=== PATIENT | male | born 1955 | race Caucasian/White ===

== ENCOUNTER → 2016-09-03 | Outpatient (CLI) | payer MEDICARE ==
[~2016-09-03] MED LIST: ALDACTONE25 MG PO; ASPIRIN325 MG PO; BRILINTA90 MG PO; FISH OIL1000 MG PO; FLONASE 50 MCG/16 GM NOSE; HYDRODIURIL25 MG PO; LEVOTHROID (S200 MCG PO; LIPITOR80 MG PO; LOPRESSOR100 MG PO; MIRAPEX0.125 MG PO; MULTI VITAMIN1 EACH PO; NEURONTIN400 MG PO; NORVASC10 MG PO; OXYGEN M-15 INH; PAMELOR25 MG PO; PLAVIX75 MG PO; PRINIVIL (ZESTR20 MG PO; PROTONIX40 MG PO; SINEMET CR 25-1 EACH PO; TYLENOL EXTRA500 MG PO; ULTRAM50 MG PO; ZOCOR20 MG PO; ZYRTEC10 MG PO
== END ==
LOC: LGSMG 15:10
DX: R07.89 Other chest pain (principal); E03.9 Hypothyroidism, unspecified

== ENCOUNTER → 2016-09-08 | Outpatient (CLI) | payer MEDICARE ==
--- NOTE | ~2016-09-08 | ESTC ---
Cardiac Perfusion Imaging Demographics Patient Name DEANGELO Duque Gender Male Patient Number [id number] Race Visit Number [id number] [place] [id number] Room Number Accession Number [id number] Height 71 inches Date of 1955 Weight 240 pounds Interpreting Annelise Guzman MD Date of study 09/08/2016 Physician Supervising /SANKET POWERS Technologist Emily Pink Ordering Physician Stress [place] tool technician Oscar Stress ECG Reading Bill San Physician AJIT The procedure was explained in detail to the patient. Risks, complications and alternative treatments were reviewed. Written consent was obtained. Medications Reviewed with Patient prior to Procedure. Procedure Procedure Type: Nuclear Stress Test:Cardiolite Stress Test Procedure Start time: 09/08/2016 09:15 Indications: Exertional Chest Pain. Risk Factors The patient risk factors include:prior PCI on 05/04/2015;prior CABG on 05/04/2000;former tobacco use, treated hypercholesterolemia, treated and controlled hypertension for 10 years, family history of premature CAD, dyslipidemia, prior heart failure , prior [place] and ( years not smokin). Conclusions Summary Cardiolite SPECT images demonstrate homogenous uptake of radioactive tracer. No evidence of inducible reversible defect and no evidence of underlying fixed defect. TID is mildly increased at 1.16 Gated images demonstrate normal left ventricular systolic function without inducible wall motion abnormalities. LVEF is 65% Stress Protocols Resting ECG RSR with T wave inverstion AVL V2, V3 Resting HR:60 bpm Resting BP:128/74 mmHg Pre-stress physical exam: Patient assessed by Becca Khan APRN prior to testing. Stress Protocol:Pharmacologic Peak HR:68 bpm HR response: Appropriate Predicted HR: 158 bpm BP response: Appropriate % of predicted HR: 43 Reason for termination:Infusion complete ECG Findings No ECG changes suggestive of ischemia. Arrhythmias No rhythm abnormality. Symptoms Complained of shortness of breath with Lexiscan Stress Interpretation Appropriate hemodynamic response to Lexiscan. No significant ST-T wave changes with Lexiscan. ECG portion is negative for ischemia by diagnostic criteria. Unchanged EKG baseline. Stress supervision and interpretation provided by Priscilla Khan APRN . Imaging Results Summed scores - Summed stress score: 0 - Summed rest score: 0 - Summed difference score: 0 Stress ejection Ejection fraction:65 % EDV :149 ml ESV :52 ml Stroke volume :97 ml LV mass :158 gr Imaging Protocols Rest Stress Isotope:Tc99m Sestamibi IV Isotope: Tc99m Sestamibi IV Isotope dose:14.6 mCi Isotope dose:42.7 mCi Date:09/08/2016 07:24 Date:09/08/2016 10:07 Technique: SPECT Technique: Gated Supine SPECT Supine Scan Time:45-60 minutes post Scan Time:45-60 minutes post injection injection Procedure Medications - Regadenoson (Lexiscan) 0.4 mg IV over 10-15 sec. I.V. . Medical History Admission Data Admission date: 09/08/2016 Admission Time: 06:48 Hospital Status: Outpatient. Signatures dtt: Thomas Castelan (cardio) dtd: 09/08/16 0915 Physician Self Edit
== END | disposition disaster alternative care site (69) ==
LOC: GRAD 06:48
DX: R07.89 Other chest pain (principal)
CPT/HCPCS: A9500; J2785

== ENCOUNTER 2016-09-13 20:26 | Inpatient (IN) | payer MEDICARE ==
[~2016-09-13] VITALS: Ht 180.3 cm; Wt 101.2 kg
--- NOTE | ~2016-09-13 | CATH ---
Cardiac Diagnostic Report Demographics Patient Name DEANGELO Duque Gender Male Date of 1955 Age 60 year(s) Patient Number [id number] Date of Study 09/14/2016 Visit Number [id number] Room Number G[address] [place] [id number] Ht 170.18 cm Wt 126.55 kg Referring Efstratiou Primary Physician Physician Wayne Pena MD Performing Efstratiou Secondary Physician Physician Wayne Pena MD Diagnostic Efstratiou Assisting Physician Physician Wayne Pena MD Interventional Physician Valve Setter Physician Findings and Conclusions Diagnostic Findings and Conclusion EF 65% No major stenosis seen Patent proximal LAD stent and MORRIS to distal LAD Diagnostic Recommendations Medical treatment Procedure Description The patient was brought to the diagnostic cardiac catheterization-EP laboratory in the fasting, non-sedated state. Informed consent was obtained in the written and verbal form after the risks and benefits were explained. The patient had no further questions and agreed to proceed. The planned puncture-incision site(s) were shaved and prepped with ChloraPrep and draped in the usual sterile manner. Conscious sedation, supplemental oxygen, and pain control medications were delivered by a registered nurse under physician guidance. Surface ECG rhythm, blood pressure measurement, and pulse oximetry were monitored throughout the procedure. Arterial access. The access site was infiltrated with lidocaine. The vessel was entered with the Seldinger technique. A sheath was advanced into the vessel and used for catheter placement. Selective left coronary angiography. A catheter was advanced into the left coronary vessel ostium under Fluoroscopic guidance. Contrast was injected by hand. Images were obtained in multiple projections. Selective right coronary angiography. A catheter was advanced into the right coronary vessel ostium under fluoroscopic guidance. Contrast was injected by hand. Images were obtained in multiple projections. Selective MORRIS graft angiography. A catheter was advanced into the left internal mammary graft ostium under fluoroscopic guidance. Contrast was injected by hand. Images were obtained in multiple projections. Left heart catheterization with ventriculography. A catheter was advanced across the aortic valve to the left ventricle under fluoroscopic guidance. Resting hemodynamics were obtained. With the catheter at the left ventricular apex, contrast was injected. Images were obtained in ALEX projections. Post-ventriculography LV pressure was obtained. The catheter was gradually withdrawn into the aorta with continuous pressure recording. Arterial artery hemostasis. Hemostasis was achieved. The patient was transferred to a regular nursing floor via cart accompanied by a nurse. The patient left the laboratory in stable condition. Diagnostic Cath Status: Urgent Procedure Procedure Type Diagnostic procedure:Ventriculogram:, Left, Angiography:, Coronary Angios Indications: Chest pain and Ventricular Tachycardia. The procedure was explained in detail to the patient. Risks, complications and alternative treatments were reviewed. Written consent was obtained. Medications Reviewed with Patient prior to Procedure. Angiographic Findings Dominance: Right Cardiac Arteries and Lesion Findings LMCA: Lesion on LMCA: Distal subsection.20% stenosis . LAD: Proximal LAD stent patent.There is a previous stent on Mid LAD. Lesion on Dist LAD: 100% stenosis . Lesion on 1st Diag: Ostial.30% stenosis . LCx: There is a previous stent on Prox CX Ostial. Lesion on Prox CX: Ostial.25% stenosis . RCA: PL- a small terminal branch is occluded and fills late. Lesion on Mid RCA: 20% stenosis . Cardiac Grafts - There is a graft that originates at the MORRIS and attaches to the Mid LAD (Patent). - (occluded). Coronary Tree Procedure Data Procedure Date Date: 09/14/2016Start: 01:37 PMEnd: 02:12 PM Entry Locations - Retrograde Percutaneous access was performed through the Right Femoral artery (Primary location). A 6 Fr sheath was inserted. Hemostasis was successfully obtained using Angio-Seal STS PLUS ([facility]). Closure Comments: Deployed by Dr. Peterson. Procedure Medications Order and Administration + + + + + !Time !Medication !Dosage !Route ! + + + + + !09/14/2016 02:02 PM !Nitroglycerin !10 mcg/min !I.V. drip ! + + + + + Devices Used - A6 Fr. BS JL 4 Diag. Catheterwas used for:Left coronary angiography. - A6 Fr. BS JR 4 Diag. Catheterwas used for:Right coronary angiography. - A6 Fr. BS JR 4 Diag. Catheterwas used for:MORRIS. - A6 Fr. BS Angled Pigtail Diag. Catheterwas used for:Left ventriculography. Contrast Material - Isovue 223944 ml Fluoroscopy Time: Diagnostic: 4:12 minutes. Total: 4:12 minutes. Fluoroscopy Dose: Diagnostic: 966 mGy. Total: 966 mGy. Estimated Blood Loss: 15 ml. Medical History Allergies - No known allergies. Risk Factors The patient risk factors include:prior PCI on 11/13/2015; prior CABG on 05/03/1996;peripheral arterial disease, treated hypercholesterolemia, treated hypertension, family history of premature CAD, last creatinine: 1.3 mg/dl, creatinine clearance: 105.46 ml/min, dyslipidemia and former tobacco use. Admission Data Admission Date: 09/14/2016 Admission Time: 12:23 AM Admit Source: Emergency department Insurance Payors: Medicare. Admission Medications + +------+------+ + + + + !Medication !Dosage!Times !Last !Last !Administered !Comments ! ! ! !Per !Delivery !Delivery ! ! ! ! ! !Day !Date !Time ! ! ! + +------+------+ + + + + !Aspirin ! ! ! ! !Yes ! ! !(any) ! ! ! ! ! ! ! + +------+------+ + + + + !Statin (any)! ! ! ! !Yes ! ! + +------+------+ + + + + ![place] ! ! ! ! !Yes ! ! !Inhibitor ! ! ! ! ! ! ! !(any) ! ! ! ! ! ! ! + +------+------+ + + + + !Beta Dmitri! ! ! ! !Yes ! ! !(any) ! ! ! ! ! ! ! + +------+------+ + + + + Clinical Evaluation Leading to Procedure - The patient's CAD presentation was assessed as: Unstable angina. - The patient's anginal syndrome during the past two weeks was assessed as: Class IV according to the [place] Cardiovascular Society Classification System (CCS). Anti-anginal medications were prescribed during the past two weeks. The medication is: Beta Blockers. VA LV function assessed as:Normal. Ejection Fraction - Method: LV gram. EF%: 65. Snapshots Hemodynamics Condition: Rest O2 Consumption: Estimated: 265.38Heart Rate: 61 bpm Pressures (mmHg) +-----+ + !Site !Pressure ! +-----+ + !AO !119/64 (86) ! +-----+ + !AO !122/74 (90) ! +-----+ + !LV !124/-18 ! +-----+ + !LV !125/- ,17 ! +-----+ + !LV !118/1 ,18 ! +-----+ + !LV !119/1 ,20 ! +-----+ + !AO !119/57 (82) ! +-----+ + !LV !118/0 ,18 ! +-----+ + Valve Gradients and Areas + +---------+---------+---------+ +---------+ + !Valve !Peak !Mean !Area !Index !Flow !Source ! + +---------+---------+---------+ +---------+ + !Aortic !0 !0 ! ! ! ! ! + +---------+---------+---------+ +---------+ + !Aortic !0 !0 ! ! ! ! ! + +---------+---------+---------+ +---------+ + Shunts Oxygen Values O2 Capacity 157.76 O2 Consumption 265.38 Signatures dtt: Armaan Peterson dtd: 09/14/16 1337 Physician Self Edit
--- NOTE | ~2016-09-13 | ENPV ---
Carotid Duplex Study Demographics Patient Name CLINT BRIGHT Date of Study 09/15/2016 Patient Number [id number] Gender Male Date of 1955 Age 60 Visit Number [id number] Height 67 Accession Number [id number] Weight 279 Referring Cachorro Helm Interpreting Berenice Martinez MD Physician Physician Physician Ordering Cachorro Helm Assistant Store Manager Trainee Physician Inspecting Supervisor Suad Rubio Conclusions Summary The right internal carotid artery has mild, 1-39%, plaque and stenosis. The left internal carotid artery has mild, 1-39%, plaque and stenosis. The right vertebral artery is present with antegrade flow. The left vertebral artery is present with antegrade flow. Calcific plaque at the bulb and internal carotid artery on the right. Calcific plaque at the bulb on the left. Procedure Type of Study: Cerebral:Carotid, Carotid Doppler Bilateral. Indications for Study:Carotid Bruit. Allergies - No known allergies. Patient Status:Routine. Study Location:Inpatient Portable. Technical Quality:Adequate visualization. Risk Factors - The patient's risk factor(s) include: dyslipidemia, treated arterial hypertension and prior CABG. - The patient has a former tobacco history. - The patient's last creatinine was 1.3 mg/dl. Velocities are measured in cm/s ; Diameters are measured in cm Carotid Right Measurements Carotid Left Measurements + +--------+--------+ + + + +--------+ --------+ + + !Location !PSV !EDV !Angle !%Stenosis ! !Location !PSV ! EDV !Angle !%Stenosis ! + +--------+--------+ + + + +--------+ --------+ + + !Prox CCA !110 !24 !60 ! ! !Prox CCA !134 ! 36 !60 ! ! + +--------+--------+ + + + +--------+ --------+ + + !Dist CCA !96 !24 !60 ! ! !Dist CCA !107 ! 29 !60 ! ! + +--------+--------+ + + + +--------+ --------+ + + !Prox ICA !83 !35 !60 ! ! !Prox ICA !107 ! 31 !60 ! ! + +--------+--------+ + + + +--------+ --------+ + + !Dist ICA !87 !30 !40 ! ! !Dist ICA !97 ! 26 !60 ! ! + +--------+--------+ + + + +--------+ --------+ + + !Prox ECA !143 ! !60 ! ! !Prox ECA !166 ! !60 ! ! + +--------+--------+ + + + +--------+ --------+ + + !Vertebral !42 ! !60 ! ! !Vertebral !57 ! !60 ! ! + +--------+--------+ + + + +--------+ --------+ + + !Subclavian !126 ! !60 ! ! !Subclavian !166 ! !60 ! ! + +--------+--------+ + + + +--------+ --------+ + + - There is antegrade vertebral flow noted on the right side. - There is antegrade verte bral flow noted on the left side. - Add'l Measurements:ICAPSV/CCAPSV 0.79.ICAEDV/CCAEDV 1.42. - Add'l Measurements:ICAPS V/CCAPSV 0.8.ICAEDV/CCAEDV 0.85. Signature dtt: Brandyn Ng dtd: 09/15/16 0813 Physician Self Edit
--- NOTE | ~2016-09-13 | DS ---
PATIENT'S NAME: CLINT BRIGHT [facility] AGE: 60 Y [address] ROOM: [facility] [place], [place] [address] LOCATION: GPCU ADMIT DATE: 09/14/2016 Discharge Summary DISCHARGE DATE: 09/15/2016 FAMILY PHYSICIAN: Alicja Ivory MD ATTENDING PHYSICIAN: Robert Hughes FINAL DIAGNOSES: 1. Chest pain. 2. Arrhythmia. 3. Known coronary disease. 4. Acute kidney injury. 5. Essential hypertension. 6. Carotid bruit with a pending Doppler. 7. Hypothyroidism. HISTORY OF PRESENT ILLNESS: For details of admission, please see the history and physical dictated by Dr. Hughes. In short, the patient was admitted to the hospital with chest pain and en route it was felt by the paramedics that he had had ventricular tachycardia. LABORATORY DATA: On admit, sodium 140, at discharge 145; potassium on admission 3.9 and 3.6 on discharge; BUN on admission was 27, discharge 16; and creatinine on admission was 1.3, discharge 1.8. Liver enzymes were normal. Magnesium was 2.3. Cholesterol 138, triglycerides 221, and HDL 35. Cardiac enzymes, 4 sets, were all negative. Hemoglobin A1c was 6. TSH was 2.47. On admission, white blood cell count 11.3, hemoglobin 11.6, hematocrit 34.2, platelet count 255, these all remained stable during the hospital stay. Urinalysis did not show any evidence of infection or protein spillage. A CT scan of the head done in the ER on admission did not show any acute changes. A CT scan without contrast to rule out a dissection, there was no evidence of aneurysm or dissection; had a 5-cm renal cyst; and punctate nonobstructing stones in the upper pole of the left kidney. CARDIOVASCULAR DATA: Echocardiogram done showed that his EF was 50% to 55%, he had non-concentric left ventricular hypertrophy, left ventricle was mildly dilated, he had mildly reduced right ventricular function, and he did have normal relaxation. HOSPITAL COURSE: The patient was admitted after presenting to the emergency room via squad with chest pain, with a concern that he had had ventricular tachycardia en route. The patient is normally seen by Dr. Thomas Castelan for cardiology purposes. Dr. Peterson was national coverage specialist and did see him. Cardiology consult was obtained. Cardiac enzymes were obtained, all of which returned negative. A CT scan was done to rule out an aortic dissection. The patient was continued on his home medications. His pain did come under better PATIENT'S NAME: CLINT BRIGHT [facility] AGE: 60 Y [address] ROOM: [address] [place], [place] [address] LOCATION: GPCU ADMIT DATE: 09/14/2016 Discharge Summary DISCHARGE DATE: 09/15/2016 FAMILY PHYSICIAN: Alicja Ivory MD ATTENDING PHYSICIAN: Robert Hughes. There was concern about a new carotid bruit, so a carotid Doppler was obtained which is pending at this time. He also did complain of pain which was thought to be secondary to nitroglycerin. He was given pain medications. He was able to have the nitroglycerin weaned off. A heart catheterization was performed, which did not show any acute lesions, please see the cath note dictated by Dr. Peterson. The patient did have elevated creatinine on admission and this was monitored and it did trend downward and it was made sure that it was okay prior to proceeding with a heart catheterization. The patient was started on amiodarone 400 mg twice a day. He was seen on the by Dr. Castelan, his normal net washer. The strips were reviewed and it was felt that indeed it was not ventricular tachycardia. The amiodarone was stopped, the patient was resumed on his beta jerome, and it was felt that he was stable for discharge. I did discuss this with Dr. Castelan. The decision was made that the patient was stable for discharge with close followup with Dr. Castelan the next day in the clinic, and I did also clarify his driving status. Dr. Castelan felt that he could drive. DISCHARGE INSTRUCTIONS: Follow a cardiac diet. Dr. Castelan tomorrow as already scheduled. See Dr. Ivory in 10-14 days. MEDICATIONS: 1. Zyrtec 10 mg daily. 2. Neurontin 800 mg 3 times daily. 3. Metoprolol 100 mg twice daily. 4. Aspirin 325 mg daily. 5. Lisinopril 20 mg twice daily. 6. Levothyroxine 200 mcg daily. 7. Tramadol 100 mg 3 times daily. 8. Lipitor 80 mg at bedtime. 9. Mirapex 0.125 mg every other night at bedtime. 10. Carbidopa CR 25-100 one tablet at bedtime. 11. Multivitamin daily. 12. Badger-3 fatty acids 1000 mg twice daily. 13. Spironolactone 25 mg daily. 14. O2 at 2 L per nasal cannula at night. 15. Plavix 75 mg daily. 16. Flonase spray 1 spray per nostril each day. 17. Acetaminophen 1000 mg p.o. 3 times daily. The patient was told that he could drive and he is to follow up with Dr. Castelan. CLAUDIA KEN MD PATIENT'S NAME: CLINT BRIGHT [facility] AGE: 60 Y [address] ROOM: [place] [address] LOCATION[facility] ADMIT DATE: 09/14/2016 Discharge Summary DISCHARGE DATE: 09/15/2016 FAMILY PHYSICIAN: Alicja Ivory MD ATTENDING PHYSICIAN: Robert Hughes/carol /[id number] CC: MD Alicja Watters MD d: 09/16/161905 t: 09/19/161920, DISCHARGE SUMMARY
--- NOTE | ~2016-09-13 | ECHO ---
Transthoracic Echocardiography Report (TTE) Demographics Patient Name CLINT BRIGHT Date of Study 09/14/2016 Patient Number [id number] Visit Number [id number] Date of 1955 Room Number G6331 Gender Male Number Age 60 year(s) Referring [facility] Box Stacker Yas Mojica [facility], Physician RVT Ellen Gustafson MD Physician Interpreting Kristen Black Fireboat Operator Physician A Supervising Ordering MD/MLP Physician Nurse Stress Diabetic Educator Conclusions Summary The estimated left ventricular ejection fraction is 50-55%. Mild concentric left ventricular hypertrophy. The left ventricle is mildly dilated . Diastolic assessment reveals normal relaxation. Mildly reduced right ventricular function. The left atrium is moderately dilated. Procedure Type of Study TTE procedure:2D Echocardiogram. Procedure Date Date: 09/14/2016 Start: 09:59 AM Study Location: [employer] Technical Quality: Fair Indications:Chest pain. Appropriate Use Criteria: 9 Patient Status: Routine Rhythm: Within normal limits HR: 61 bpm BP: 116/55 mmHg Allergies - No known allergies. M-Mode/2D Measurements LV Diastolic Dimension: 1.14 cm LV Systolic Dimension: 2.45 cm LV Septum Diastolic: 5.15 cm LV Septum Systolic: 4.11 cm LV PW Diastolic: 1.58 cm AO Root Dimension: 2.7 cm Cardiac Output: 5.66 l/min AV Cusp Separation: 2.4 cm RV Diastolic Dimension: 1.23 cm LA volume: 89 ml IVC Inspiration: 1.27 cm LVOT: 2.5 cm RV Base: 3.72 cm LVOT VTI: 18.9 cm RV Mid: 2.64 cm LV Stroke volume: 92.73 ml TAPSE: 1.27 cm TDI-S': 8 cm/s Doppler Measurements AV Peak Velocity: 1.55 m/s MV Peak E-Wave: 0.9 m/s AV Peak Gradient: 9.61 mmHg MV Peak A-Wave: 0.72 m/s AV Mean Gradient: 4 mmHg MV E/A Ratio: 1.25 LVOT Peak Velocity: 0.83 m/s MV P1/2t: 95 msec TR Gradient:25.2 mmHg PV Peak Velocity: 1.03 m/s Estimated RAP:3 mmHg PV Peak Gradient: 4.24 mmHg Estimated RVSP: 28 mmHg Estimated PASP: 28.2 mmHg E' Septal Velocity: 0.1 m/s A' Septal Velocity: 0.12 m/s E' Lateral Velocity: 0.13 m/s A' Lateral Velocity: 0.12 m/s Findings Left Ventricle The estimated left ventricular ejection fraction is 50-55%. Mild concentric left ventricular hypertrophy. The left ventricle is mildly dilated . Diastolic assessment reveals normal relaxation. Right Ventricle Mildly reduced right ventricular function. Device lead noted in the right ventricle. Left Atrium The left atrium is moderately dilated. Right Atrium Normal right atrial size. Mitral Valve Trivial mitral regurgitation by color Doppler. Aortic Valve The aortic valve is mildly sclerotic. Tricuspid Valve Mild tricuspid regurgitation by color Doppler. Pulmonic Valve Normal pulmonic valve structure and function. Pericardial Effusion No evidence of pericardial effusion. Miscellaneous Visualized portions of the aortic root and ascending aorta appear normal in size. Pleural Effusion No evidence of pleural effusion. Signature dtt: Armaan Peterson dtd: 09/14/16 0959 Physician Self Edit
--- NOTE | ~2016-09-13 | CON ---
PATIENT'S NAME: CLINT BRIGHT [facility] AGE: 60 Y [address] ROOM: [address] [address] LOCATION: GPCU ADMIT DATE: 09/14/2016 Consultation DISCHARGE DATE: FAMILY PHYSICIAN: GARETH LOW MD ATTENDING PHYSICIAN: ROLANDO BAEZ DATE OF CONSULTATION: 09/14/2016 REFERRING PHYSICIAN: Armaan Peterson MD REASON FOR CARDIOLOGY CONSULT: Chest pain and nonsustained ventricular tachycardia. HISTORY OF PRESENT ILLNESS: This is a 60-year-old male who is familiar to [facility]. He is currently in the process of transferring cardiology provider to Dr. Thomas Castelan. He previously underwent a stress test on September 08, 2016, with Dr. Castelan which showed no evidence of inducible reversible deficit and no evidence of underlying fixed deficit ischemia. The patient presents to [facility] Emergency Department by ambulance after developing chest pain that he described as familiar to his previous chest pain prior to stenting. He described the pain as left-sided and intense pressure. He tried ambulating to his car to come for evaluation, but did have to stop and lie on the ground due to feelings of lightheadedness and continued increasing amounts of chest pain. While in the ambulance on transfer to [facility], he did have nonsustained ventricular tachycardia which converted back to sinus rhythm without medications. At the time of this consult, the patient is resting comfortably in his bed and does continue to have minor complaints of chest pain. PAST MEDICAL HISTORY: 1. Coronary artery disease with a history of coronary artery stenting. Most recent coronary stent placed to his LAD in November 2015. 2. Hypertension. 3. Hyperlipidemia. 4. Obstructive sleep apnea. 5. Sick sinus syndrome, with a pacemaker implantation. 6. Hypothyroidism. 7. Peripheral neuropathy. FAMILY HISTORY: There is a positive cardiac history with his father expiring due to a myocardial infarction in his 60s. His mother also has a positive cardiac history with having a myocardial infarction in her 60s. He has a brother with a history of coronary artery bypass grafting after an PR and a sister who due to chronic kidney disease and was on dialysis. PATIENT'S NAME: CLINT BRIGHT [facility] AGE: 60 Y [address] ROOM: [address] [address] LOCATION: GPCU ADMIT DATE: 09/14/2016 Consultation DISCHARGE DATE: FAMILY PHYSICIAN: GARETH LOW MD ATTENDING PHYSICIAN: ROLANDO BAEZ PAST SURGICAL HISTORY: 1. Coronary artery bypass grafting in 1995, coronary artery stenting. 2. Permanent pacemaker. 3. Low back surgeries. 4. Appendectomy. 5. Tonsillectomy. SOCIAL HISTORY: The patient is a former cigarette smoker. He smoked 2 packs per day for a total of 40 years. He quit smoking in 2008. He denies alcohol or illicit drug use. CURRENT MEDICATIONS: 1. Amiodarone IV per protocol. 2. Heparin IV per ACS protocol. 3. Sodium bicarbonate IV. 4. Aspirin 81 mg p.o. daily. 5. Claritin 10 mg p.o. daily. 6. Levothyroxine 200 mcg p.o. daily. 7. Lipitor 80 mg p.o. daily in the evening. 8. Lopressor 25 mg p.o. twice daily. 9. Mirapex 0.125 mg p.o. daily in the evening. 10. Mucomyst 1200 mg p.o. twice daily. 11. Neurontin 800 mg p.o. 3 times daily. 12. Sinemet 25/100 mg one tablet p.o. daily in the evening. MEDICATION ALLERGIES: No known medication allergies. REVIEW OF SYSTEMS: Pertinent positive review of systems listed in the HPI. All other review of systems evaluated and negative. PHYSICAL EXAMINATION: VITAL SIGNS: Temperature 97.7, pulse 60, respirations 16, blood pressure 115/57, and O2 saturation 93% on room air. The patient weighs 101.6 kg. SKIN: [place], warm, and dry. EYES: Sclerae clear. No xanthelasma. ENT: Oral mucosa is pink and moist. NECK: No jugular venous distention or carotid bruits. CHEST: Respirations are even and unlabored. LUNGS: Clear to auscultation. HEART: Regular rate and rhythm. Normal S1 and S2. No murmurs, rubs, or gallops. PATIENT'S NAME: CLINT BRIGHT [facility] AGE: 60 Y [address] ROOM: [address] [place] [id number] LOCATION: GPCU ADMIT DATE: 09/14/2016 Consultation DISCHARGE DATE: FAMILY PHYSICIAN: GARETH LOW MD ATTENDING PHYSICIAN: ROLANDO BAEZ ABDOMEN: Soft and nontender. MUSCULOSKELETAL: Gait is normal. EXTREMITIES: Peripheral pulses palpable. No clubbing, cyanosis, or edema. PSYCHIATRIC: Alert and oriented. Mood and affect are appropriate. IMPRESSION AND PLAN: Per Dr. Peterson. 1. Unstable angina. 2. Nonsustained ventricular tachycardia. With his history of coronary artery bypass grafting as well as coronary stenting as well as risk factors including smoking, history of peripheral arterial disease, and diabetes mellitus, his symptoms are rather concerning for possible coronary occlusion. We will plan to take him to the catheterization suite for selective coronary angiography and possible percutaneous intervention. We will continue to monitor, evaluate, and treat as appropriate. Thank you for this consult. Thank you for allowing [facility] to interact in the care of this patient. PATTI MIDDLETON APRN FOR [facility] S[facility] CAMPUSTorsten-MD BARNETT/modl /[id number] d: 09/14/16 1655 t: 09/17/16 1011, CONSULTATION REPORT
--- NOTE | ~2016-09-13 | HP ---
PATIENT'S NAME: CLINT BRIGHT [facility] AGE: 60 Y [address] ROOM: [address] [place], [place] [address] LOCATION: GPCU ADMIT DATE: 09/14/2016 History & Physical DISCHARGE DATE: FAMILY PHYSICIAN: GARETH LOW MD ATTENDING PHYSICIAN: ROLANDO BAEZ DATE OF SERVICE: CHIEF COMPLAINT: Chest pain and presyncope. HISTORY OF PRESENT ILLNESS: This is a 60-year-old male, who says that around 6 p.m. yesterday, he was playing dice with friends and the family members, and all of a sudden, he felt this chest pain in the left side of the chest, intensity 10/10, and it felt like somebody was sitting on his chest with radiation to the left shoulder and then to the upper back. The pain was 10/10 of intensity, and the patient was also diaphoretic and pale with nausea, and vomited twice of nonbloody content and associated with lightheadedness and presyncope, and some blurry vision and palpitation, but the patient denies ever passing out. There was no syncope. Because of this, the patient's nephew tried to take him home. He was walking towards the car. The patient's chest pain got worse, and the patient had to lie on the ground to rest. That is when the family member, the nephew and the called 911, and the patient was brought here for evaluation. The patient states that this kind of chest pain is actually the same as the last time he had chest pain when he required a cardiac catheterization back in November of 2015. At that time, the patient had PCI to LAD. Upon further questioning, this kind of chest pain he has been having in the last three to four weeks on and off, and the patient recently had a stress test performed on September 08, 2016. It was negative for ischemia. EF at that time was 65%. During the ambulance ride over here, the patient developed a sustained ventricular tachycardia with heart rate between 120 to 130, and blood pressure was hemodynamically stable according to the ENT. The patient was complaining of chest pain and palpitation. These episodes of sustained ventricular tachycardia lasted for roughly 40 seconds, and then self-converted to sinus rhythm without receiving any medication during the ambulance ride. The patient never lost consciousness and the patient never lost pulse. Therefore, the patient did not receive any asynchronized cardioversion. Upon arrival here in the Emergency Room, the patient has remained in sinus rhythm, and has been given a total of 2 mg IV morphine, and was started on nitroglycerin drip. He also got amiodarone IV bolus 150 mg, and then followed by the drip. He PATIENT'S NAME: CLINT BRIGHT [facility] AGE: 60 Y [address] ROOM: [id number] [place] [address] [facility] AD[facility] DATE: 09/14/2016 History & Physical DISCHARGE DATE: FAMILY PHYSICIAN: GAERTH LOW MD ATTENDING PHYSICIAN: ROLANDO BAEZ also received 2 g of IV magnesium sulfate and also 1 L of normal saline bolus. The patient's chest pain has come down to 2/10, and has remained in sinus rhythm. Blood pressure runs in the 120 systolic. Heart rates are anywhere between the 70 to 80s while in the Emergency Room in sinus rhythm. The patient also has a pacemaker implanted many years ago back in [place] for sick sinus syndrome in the past. The patient cannot remember when was the last time the pacemaker was checked, but he states that it was checked probably a few years ago, and he was told that it was normal. The patient states that the pacemaker was checked here, but he could not remember all the details by whom or exactly when, but he was told it was normal. In the Emergency Room due to the nature of the chest pain radiating to the upper back and also blood pressure on arrival was 160, there was a concern about ascending aortic dissection. Therefore, 1 L of normal saline bolus was given, and then followed by CT angiogram of the chest with and without contrast. Based on the preliminary report, it was not pulmonary embolism or acute vascular abnormality. However, it did show atherosclerotic and coronary artery calcification. Currently, the patient has remained with chest pain about 2/10 in intensity, and is currently on nitroglycerin drip and also amiodarone drip. Blood pressure at the time of my dictation right now is heart rate of 61, sinus rhythm, 99% of oxygen saturation on 2 L nasal cannula, blood pressure of 112/57, and respirations of 14. The patient looked comfortable, and not diaphoretic or restless. The patient was transferred to PCU for further care and monitoring. REVIEW OF SYSTEMS: As mentioned in the history of present illness. All other systems were reviewed and they were negative except those mentioned in the history of present illness. PAST MEDICAL HISTORY: 1. Hypertension. 2. Hyperlipidemia. 3. Obstructive sleep apnea, on 2 L nasal cannula at night during sleep. 4. Restless legs syndrome. 5. Coronary artery disease, status post stents. He could not remember how many stents, but they were placed in the past. Based on the [employer], he had a cardiac cath back in November 2015, and he had PCI to LAD. 6. Hypothyroidism. 7. Sick sinus syndrome, status post permanent pacemaker implantation a few years ago back in [place]. 8. Depression. 9. Peripheral neuropathy. 10. Stress test based on the [employer] was on September 08, 2016. It was negative for ischemia. PATIENT'S NAME: CLINT BRIGHT [facility] AGE: 60 Y [address] ROOM: [place] [address] LOCATION: GPCU ADMIT DATE: 09/14/2016 History & Physical DISCHARGE DATE: FAMILY PHYSICIAN: GARETH LOW MD ATTENDING PHYSICIAN: ROLANDO BAEZ 11. Last transthoracic echocardiogram back on our [employer] was showing in November 2015, EF was 55% to 60% and grade 1 diastolic dysfunction. At that time, also had septal dyskinesis secondary to pacemaker lead. 12. History of coronary artery disease, status post CABG back in 1995. ALLERGIES: NO KNOWN DRUG ALLERGIES ACCORDING TO THE PATIENT. SOCIAL HISTORY: The patient was a former cigarette smoker. He quit about 11 years ago. He used to smoke about two packs per day for 30 years. The patient denies any alcohol or any illegal drug use. FAMILY HISTORY: Father from myocardial infarction at age 60. Mother from myocardial infarction also at age 60. Also, he has one brother who had open heart surgery bypass and also myocardial infarction in age 60s. He had a sister, who from complication from chronic kidney disease, on dialysis and he had another sister who from complication from stroke at advanced age. PAST SURGICAL HISTORY: 1. Status post open heart surgery, CABG back in 1995. 2. Status post stents placed in the heart, not sure how many. The most recent one was placed in November 2015 based on our [employer] report. 3. Status post permanent pacemaker implantation many years ago in [place]. 4. Lower back surgery in the past. 5. Status post appendectomy. 6. Status post tonsillectomy. PHYSICAL EXAMINATION: VITAL SIGNS: At the time of my dictation, temperature was 97.7, heart rate was 61, respirations were 14, blood pressure was 127/78, and saturation was 95% on 2 L nasal cannula. GENERAL APPEARANCE: Alert and oriented x3, in no acute distress. HEENT: Pupils are equally round and reactive to light. Extraocular muscles are intact. Anicteric sclerae. Nasal turbinates are normal bilaterally. Moist oral mucosa. NECK: No JVD. CARDIOVASCULAR: Regular rate and rhythm. Normal S1 and S2. No murmur. No rubs. No gallops. RESPIRATORY: Clear to auscultation. Chest wall was nontender to palpation. ABDOMEN: Obese, soft, nontender, and nondistended. Normal bowel sounds. No hepatosplenomegaly. Bowel sounds are present. EXTREMITIES: No edema in upper or lower extremities. PATIENT'S NAME: CLINT BRIGHT [facility] AGE: 60 Y [address] ROOM: [place] [address] [facility]: [facility] ADMIT DATE: 09/14/2016 History & Physical DISCHARGE DATE: FAMILY PHYSICIAN: GARETH LOW MD ATTENDING PHYSICIAN: ROLANDO BAEZ NEUROLOGICAL: Grossly nonfocal. SKIN: No ulcer. No rash. No cyanosis. MUSCULOSKELETAL: No joint pain. No muscle pain. Range of motion was intact. LABORATORY DATA: Troponin is less than 0.04, the first set. CPK was 215, the first set. CK-MB of 2.5, the first set. White blood cells of 13.7, hemoglobin of 12.7, hematocrit of 38.2, MCV of 98.2, platelets of 266, glucose of 106, BUN of 31, creatinine of 1.8, sodium of 140, potassium of 4.0, chloride of 108, CO2 of 21, calcium of 8.8, total protein of 6.9, albumin of 3.7, AST of 119, ALT of 28, alkaline phosphatase of 78, total bilirubin of 0.3, magnesium of 1.9, and GFR of 38. INR is 0.97 and PTT is 23. Urinalysis was negative for UTI. TSH of 2.47 back on September 03, 2016. IMAGING STUDY: CT of the brain without contrast on admission based on the preliminary report, it was negative. CT of the chest angiography with contrast and without contrast on admission based on the preliminary report, it did not show any pulmonary embolus or any acute vascular abnormality. No definite cause for symptoms identified. There was atherosclerosis and coronary artery calcification. Indeterminate cystic mass in the left kidney. Ultrasound or contrast CT scan could be considered to evaluate for risk of malignancy. Telemetry strips in the ambulance on September 13, 2016 at 08:24 p.m., heart rate was 119 and shows evidence of a sustained ventricular tachycardia, which lasted for roughly 40 seconds. EKG performed during the ambulance ride at 07:46 p.m. on admission showed a paced rhythm. EKG here in the ER on admission on September 13, 2016 at 08:33 p.m. also showed paced rhythm and heart rate of 69. In the ambulance, the paced rhythm was heart rate at 87. EMERGENCY COURSE: In the Emergency Room, the patient received nitroglycerin drip, amiodarone bolus of 150 mg IV followed by drip, 2 g of IV magnesium, and 2 g of IV morphine; also 1 L of normal saline bolus. ASSESSMENT AND PLAN: 1. Regarding his sustained ventricular tachycardia with pulse: The patient did not require asynchronized cardioversion, given that the patient had ventricular tachycardia with pulse. The patient will be watched very closely in the PCU with telemetry monitoring and n.p.o. after midnight. I will start him on the IV heparin drip per ACS protocol, given that the PATIENT'S NAME: CLINT BRIGHT [facility] AGE: 60 Y [address] ROOM: [id number] [place] [id number] LOCATION: GPCU ADMIT DATE: 09/14/2016 History & Physical DISCHARGE DATE: FAMILY PHYSICIAN: GARETH LOW MD ATTENDING PHYSICIAN: ROLANDO BAEZ patient has chest pain, and he states that the chest pain was identical to the last time he had the cardiac cath with the stent placed last year. Given that the patient had sustained ventricular tachycardia, it could be coming from the underlying ischemic heart disease, even though the most recent stress test last year was negative. The patient still has several risk factors for coronary artery disease. I will get Cardiology consult in the morning. I will continue the IV amiodarone drip per protocol for ventricular tachycardia, and also continue the IV nitroglycerin drip. Titrate for chest pain relief, and starting on the aspirin three tablets of 81 mg because the patient took one dose of 81 mg already at home to make a full dose, and then 81 mg daily. Lipitor 80 mg p.o. x1 right now and then daily. He takes Lopressor 100 mg p.o. b.i.d. However, the patient is currently on nitroglycerin drip, and also amiodarone drip, both can lower the blood pressure. Therefore, to give more room for the blood pressure, I am going to start him on p.o. Lopressor at 25 mg p.o. b.i.d., and always can titrate up the dose as blood pressure tolerates. I will also give him IV morphine p.r.n. for the chest pain and anxiety control. Further plan depends on clinical course. Continue cycling cardiac enzymes every 6 hours, and also get an echo transthoracic in the morning, looking for any valvulopathy and ejection fraction and also any motion abnormality. EKG in the morning again. Further plan depends on clinical course. Keep the potassium more than 4 and keep the magnesium more than 2. Further plan depends on clinical course. I will also leave the code cart ready outside the patient's room in case the patient required cardioversion. I will also leave the defibrillator pads in place at all times, just in case it ever becomes necessary. 2. Regarding his history of coronary artery disease, status post stents with recent cardiac cath in November of 2015 with PCI to LAD: The patient had a recent stress test that was done on September 08, 2016. It was negative for ischemia. The patient still has a ventricular tachycardia on this admission. I will defer care to Cardiology and continue all the care as mentioned in the #1 point above. 3. Regarding his hypothyroidism: TSH was already checked earlier this month. Therefore, I am not going to repeat. Continue the current dose of the levothyroxine. Home medication list has to be addressed in the morning, and then addressed by the Medical staff once the medication list is ready. 4. History of sick sinus syndrome, status post pacemaker implantation many years ago in [place]: The patient states that his pacemaker was already interrogated a few years ago, but details are not clear. He said it was by somebody here in our hospital, but he has no recollection of all the details. I will get a Cardiology consult in the morning, and the pacemaker could be interrogated again if necessary. 5. Regarding his hypertension: Continue home medications withholding parameters. Medication list will be addressed in the morning. PATIENT'S NAME: CLINT BRIGHT [facility] AGE: 60 Y [address] ROOM: [address] [address] [facility]: [facility] ADMIT DATE: 09/14/2016 History & Physical DISCHARGE DATE: FAMILY PHYSICIAN: GARETH LOW MD ATTENDING PHYSICIAN: ROLANDO BAEZ 6. Hyperlipidemia: Continue Lipitor 80 mg p.o. daily. I will check A1c and also a lipid panel in the morning as well. 7. Regarding his acute kidney injury: Hydration with normal saline, and I will also start the patient on the contrast-induced nephropathy protocol, given that the patient might require cardiac cath and also because he got the IV contrast for the CT angiogram of the chest in the Emergency Room. Prior to the CT angiogram of the chest, the patient already got a 1 L bolus of normal saline. I am going to start him on the normal saline maintenance right now at 100 mL/hr, and also do the contrast-induced nephropathy protocol with the sodium bicarbonate and also with Mucomyst per protocol. Check renal panel again in the morning. Hold all the CHARLOTTE inhibitors and also all the ARBs. Also, hold all the nephrotoxic medications as well. 8. Regarding his deep vein thrombosis prophylaxis: He will be on heparin drip. 9. Code status: He is a full code. Time spent in care on the day of admission was 55 minutes including chart review, interviewing the patient, examining the patient, addressing all the questions and concerns that the patient had, and I went over the plan of care in detail with the patient and nurses. ER physician also already has spoken the case over the phone with the on-call flight surgeon as well. Further plan depends on clinical course. Currently, the patient does not have any questions and is in agreement with the plan. ROLANDO BAEZ MD CC/modl /[id number] D: [id number] T: [id number] HISTORY & PHYSICAL
--- NOTE | ~2016-09-13 | HP ---
PATIENT'S NAME: CLINT BRIGHT [facility] AGE: 60 Y [address] ROOM: [address] [address] [facility] ADMIT DATE: 09/14/2016 History & Physical DISCHARGE DATE: FAMILY PHYSICIAN: GARETH LOW MD ATTENDING PHYSICIAN: ROLANDO BAEZ DATE OF SERVICE: ADDENDUM: The patient does not want to have the Pena catheter inserted and he says that he rather void on his own. The reason for the Pena catheter insertion initially was because of COLBY and to have a strict in's and out's and to rule out any postobstructive causes of COLBY. However, the patient states that he can void without problems. Therefore, I am going to abide by the patient's wish and have the patient void on his own and will continue with strict in's and out's measurement. ROLANDO BAEZ MD CC/modl /[id number] D: [id number] T: [id number] HISTORY & PHYSICAL
--- NOTE | ~2016-09-13 | ER ---
PATIENT'S NAME: CLINT BRIGHT [facility] AGE: 60 Y [address] ROOM: [place] [address] LOCATION: GPCU ADMIT DATE: 09/14/2016 ER/Outpatient Report DISCHARGE DATE: 09/15/2016 FAMILY PHYSICIAN: Alicja Ivory MD ATTENDING PHYSICIAN: Robert Hughes CORRECTED PATIENT ACCOUNT INFORMATION 10/13/16 AO Time of Arrival: 2025. The patient was seen on arrival. CHIEF COMPLAINT: This is a 60-year-old male previously fairly healthy arrived by ambulance with a complaint of chest pain. HISTORY OF PRESENT ILLNESS: The patient reports that he had gradual onset of chest pain about 2 hours ago. The pain became more severe, so he called the ambulance. En route to the emergency department, he was alert and chatting with the medic crew. He had an episode of ventricular tachycardia in which he lost consciousness. This occurred about 2 minutes prior to arrival and since then he has been obtunded. PAST MEDICAL HISTORY: Significant for coronary artery disease, hypertension, he has an atrial pacemaker, and he has had coronary artery bypass surgery. CURRENT MEDICATIONS: Please see list. REVIEW OF SYSTEMS: Otherwise negative. SOCIAL HISTORY: He is currently a nonsmoker. PHYSICAL EXAMINATION: GENERAL: An alert, obtunded male in no acute physiologic distress. He would awaken to tactile stimulus. He did complain of continued chest pain but would not reliably answer any other questions. SKIN: Warm and dry. Color is pale. HEAD, EARS, EYES, NOSE, AND THROAT: Normal. NECK: Supple. HEART: Had a regular rate and rhythm without murmur. LUNGS: Clear. Breath sounds are equal. ABDOMEN: Soft. EXTREMITIES: Normal. NEUROLOGIC: He is obtunded. He had a nonfocal exam. PATIENT'S NAME: CLINT BRIGHT [facility] AGE: 60 Y [address] ROOM: [address] [address] LOCATION: GPCU ADMIT DATE: 09/14/2016 ER/Outpatient Report DISCHARGE DATE: 09/15/2016 FAMILY PHYSICIAN: Alicja Ivory MD ATTENDING PHYSICIAN: Robert Hughes LABORATORY DATA: EKG revealed normal sinus rhythm with inverted T-waves in the anterior leads. He had slight ST depression in the anterior leads. He is given an amiodarone bolus 150 mg. Amiodarone drip was initiated. He was given 2 g of magnesium IV. Nitroglycerin drip was initiated. His pain did improve with the nitroglycerin drip. While he was in the emergency department, his mental status gradually returned to normal and he could answer questions appropriately. He then complained of severe chest pain and he stated that the pain radiated straight through to his intrascapular region. Blood pressures in both arms were equal. CT of his brain was negative. CT of his chest revealed no evidence of aortic dissection. Cardiac enzymes were negative. The patient had no additional arrhythmias while in the emergency department. ASSESSMENT: 1. Chest pain/unstable angina. 2. Ventricular tachycardia sustained for about 30-45 seconds, resolved spontaneously. PLAN: Admit to the ICU. Time spent caring for the patient, 1 hour 5 minutes. SANDRA TEJADA MD JWESLY/anglel /[id number] CORRECTED PATIENT ACCOUNT INFORMATION 10/13/16 AO d: 09/14/16 1118 t: 10/19/16 0455, OUTPATIENT REPORT
[~2016-09-13 20:26] MED LIST changes: -ALDACTONE25 MG PO; -FLONASE 50 MCG/16 GM NOSE; -OXYGEN M-15 INH; -PLAVIX75 MG PO; -PROTONIX40 MG PO; -TYLENOL EXTRA500 MG PO
[2016-09-13 21:07] LABS: BASOPHIL # 0.1 K/uL (0.0-0.2); BASOPHIL % 0.6 %; EOSINOPHIL # 0.3 K/uL (0.0-0.5); EOSINOPHIL % 2.1 %; HEMATOCRIT 38.2 % (37.0-53.0); HEMOGLOBIN 12.7 g/dL (11.0-16.0); IMMATURE GRANULOCYTE # 0.1 K/uL (0.0-0.3); IMMATURE GRANULOCYTE % 0.5 %; LYMPHOCYTE # 2.6 K/uL (0.8-4.0); LYMPHOCYTE % 19.3 %; MCH 32.6 pg (27.0-34.0); MCHC 33.2 gm/dL (32.0-36.5); MCV 98.2 fl (83.0-98.0); MONOCYTE % 7.5 %; MPV 9.6 fl (9.4-12.4); NEUTROPHIL # (ANC) 9.6 K/uL (1.4-9.0); NRBC % 0 /100WBC (0-0.00); PLATELET COUNT 266 K/uL (150-450); RBC 3.89 M/uL (3.50-5.50); RDW-CV 13.2 % (11.9-14.6); WBC 13.7 K/uL (4.0-11.0)
[2016-09-13 21:17] LABS: INR - (THERAPEUTIC) 0.97 (0.92-1.07); PROTIME 10.2 SECONDS (9.8-11.4); PTT 23 SECONDS (25-32)
[2016-09-13 21:24] LABS: ALBUMIN 3.7 gm/dL (3.5-5.0); ALK PHOS 78 IU/L (33-138); ALT 28 IU/L (12-78); AST 19 IU/L (10-40); BLOOD UREA NITROGEN 31 mg/dL (6-24); CALCIUM 8.8 mg/dL (8.5-10.5); CHLORIDE 108 mMol/L (96-110); CO2 21 mMol/L (22-32); CPK 215 IU/L (35-332); CREATININE 1.8 mg/dL (0.6-1.3); ESTIMATED GFR (MDRD EQUATION) 38; MAGNESIUM 1.9 mg/dL (1.8-2.6); SODIUM 140 mMol/L (135-145); TOTAL BILIRUBIN 0.3 mg/dL (0.0-1.5); TOTAL PROTEIN 6.9 g/dL (6.0-8.4)
[2016-09-13 23:09] LABS: CPK 201 IU/L (35-332)
[2016-09-14 00:22] LABS: BILIRUBIN URINE NEGATIVE (NEGATIVE); BLOOD URINE NEGATIVE /UL (NEGATIVE); GLUCOSE URINE NEGATIVE (NEGATIVE); KETONE URINE NEGATIVE (NEGATIVE); LEUKOCYTES URINE NEGATIVE /UL (NEGATIVE); NITRITE URINE NEGATIVE (NEGATIVE); PROTEIN URINE NEGATIVE (NEGATIVE); UROBILINOGEN URINE NORMAL (NORMAL)
[2016-09-14 00:23] LABS: COLOR URINE YELLOW (YELLOW); TURBIDITY URINE CLEAR (CLEAR)
[2016-09-14] MEDS ORDERED: ALDACTONE25 MG PO (03:22)
[2016-09-14] MEDS ORDERED: OXYGEN M-15 INH (03:23)
[2016-09-14 06:04] LABS: HEMATOCRIT 34.2 % (37.0-53.0); HEMOGLOBIN 11.6 g/dL (11.0-16.0); MCH 32.2 pg (27.0-34.0); MCHC 33.9 gm/dL (32.0-36.5); RBC 3.6 M/uL (3.50-5.50); RDW-CV 13.3 % (11.9-14.6); WBC 11.3 K/uL (4.0-11.0)
[2016-09-14 06:15] LABS: BLOOD UREA NITROGEN 27 mg/dL (6-24); CALCIUM 8.4 mg/dL (8.5-10.5); CHLORIDE 108 mMol/L (96-110); CO2 21 mMol/L (22-32); CPK 170 IU/L (35-332); CREATININE 1.3 mg/dL (0.6-1.3); SODIUM 140 mMol/L (135-145)
[2016-09-14 06:16] LABS: ANION GAP 14.9 (10.0-19.0); ESTIMATED GFR (MDRD EQUATION) 56; MAGNESIUM 2.3 mg/dL (1.8-2.6); POTASSIUM 3.9 mMol/L (3.7-5.1)
[2016-09-14 09:45] LABS: INR - (THERAPEUTIC) 0.96 (0.92-1.07); PROTIME 10.1 SECONDS (9.8-11.4)
[2016-09-14 09:48] LABS: ALBUMIN 3.4 gm/dL (3.5-5.0); TOTAL BILIRUBIN 0.3 mg/dL (0.0-1.5); TOTAL PROTEIN 6.4 g/dL (6.0-8.4)
[2016-09-14 11:49] LABS: CPK 146 IU/L (35-332)
[2016-09-14] MEDS ORDERED: PLAVIX75 MG PO (12:32)
[2016-09-14] MEDS ORDERED: TYLENOL EXTRA500 MG PO (12:33)
[2016-09-14] MEDS ORDERED: FLONASE 50 MCG/16 GM NOSE (12:33)
[2016-09-15 06:08] LABS: BASOPHIL # 0.1 K/uL (0.0-0.2); BASOPHIL % 0.7 %; EOSINOPHIL # 0.3 K/uL (0.0-0.5); EOSINOPHIL % 4.1 %; HEMOGLOBIN 11.8 g/dL (11.0-16.0); IMMATURE GRANULOCYTE % 0.4 %; LYMPHOCYTE # 2.7 K/uL (0.8-4.0); MCH 32.3 pg (27.0-34.0); MCHC 33.7 gm/dL (32.0-36.5); MCV 95.9 fl (83.0-98.0); MONOCYTE # 0.8 K/uL (0.0-1.0); MONOCYTE % 9.8 %; MPV 9.6 fl (9.4-12.4); NEUTROPHIL # (ANC) 4.1 K/uL (1.4-9.0); NRBC % 0 /100WBC (0-0.00); PLATELET COUNT 250 K/uL (150-450); RBC 3.65 M/uL (3.50-5.50); RDW-CV 13.3 % (11.9-14.6); WBC 8.1 K/uL (4.0-11.0)
[2016-09-15 06:28] LABS: ALBUMIN 3.3 gm/dL (3.5-5.0); ALK PHOS 72 IU/L (33-138); ALT 14 IU/L (12-78); ANION GAP 11.6 (10.0-19.0); AST 13 IU/L (10-40); BLOOD UREA NITROGEN 16 mg/dL (6-24); CALCIUM 8.9 mg/dL (8.5-10.5); CHLORIDE 107 mMol/L (96-110); CO2 30 mMol/L (22-32); CREATININE 1.1 mg/dL (0.6-1.3); ESTIMATED GFR (MDRD EQUATION) > 60; POTASSIUM 3.6 mMol/L (3.7-5.1); SODIUM 145 mMol/L (135-145); TOTAL BILIRUBIN 0.3 mg/dL (0.0-1.5); TOTAL PROTEIN 6.5 g/dL (6.0-8.4)
== END 2016-09-15 15:00 | disposition disaster alternative care site (69) | DRG 287 ==
LOC: GMED 20:26 → GPCU 09-14 00:23
PROVIDERS: Emergency Medicine; Internal Medicine Cardiovascular Disease; Student in an Organized Health Care Education/Training Program; ADMIT Internal Medicine
PROC: B2181ZZ Fluoroscopy of Left Internal Mammary Bypass Graft using Low Osmolar Contrast (ICD-10-PCS; principal; 2016-09-14)
PROC: B246ZZZ Ultrasonography of Right and Left Heart (ICD-10-PCS; principal; 2016-09-14)
PROC: B2151ZZ Fluoroscopy of Left Heart using Low Osmolar Contrast (ICD-10-PCS; principal; 2016-09-14)
PROC: B2111ZZ Fluoroscopy of Multiple Coronary Arteries using Low Osmolar Contrast (ICD-10-PCS; principal; 2016-09-14)
PROC: 4A023N7 Measurement of Cardiac Sampling and Pressure, Left Heart, Percutaneous Approach (ICD-10-PCS; principal; 2016-09-14)
PROC: B348ZZZ Ultrasonography of Bilateral Internal Carotid Arteries (ICD-10-PCS; 2016-09-15)
DX: I25.110 Atherosclerotic heart disease of native coronary artery with unstable angina pectoris (principal); I47.2 Ventricular tachycardia; I49.5 Sick sinus syndrome; R55 Syncope and collapse; E11.9 Type 2 diabetes mellitus without complications; E78.5 Hyperlipidemia, unspecified
CPT/HCPCS: C1760; J0282; J1644; J2270; J3475; J7030; J7060; Q9967

== ENCOUNTER → 2016-09-13 | Outpatient (CLI) | payer MEDICARE | LOC: GAMB 19:58 | DX: R07.9 Chest pain, unspecified (principal); E07.9 Disorder of thyroid, unspecified; R03.0 Elevated blood-pressure reading, without diagnosis of hypertension; Z95.0 Presence of cardiac pacemaker; Z95.1 Presence of aortocoronary bypass graft ==

== ENCOUNTER → 2016-11-18 | Outpatient (CLI) | payer MEDICARE ==
[~2016-11-18] MED LIST changes: +ALDACTONE25 MG PO; +FLONASE 50 MCG/16 GM NOSE; +OXYGEN M-15 INH; +PLAVIX75 MG PO; +PROTONIX40 MG PO; +TYLENOL EXTRA500 MG PO
[2016-11-18 12:02] LABS: HEMATOCRIT 39.2 % (37.0-53.0); HEMOGLOBIN 13.5 g/dL (11.0-16.0)
== END | disposition disaster alternative care site (69) ==
LOC: LGSMG 11:56
PROVIDERS: Student in an Organized Health Care Education/Training Program
DX: R10.13 Epigastric pain (principal); K62.5 Hemorrhage of anus and rectum; G47.61 Periodic limb movement disorder; I73.9 Peripheral vascular disease, unspecified

== ENCOUNTER 2016-11-19 10:15 | Inpatient (IN) | payer MEDICARE ==
[~2016-11-19] VITALS: Ht 180.3 cm; Wt 100.6 kg
--- NOTE | ~2016-11-19 | HP ---
PATIENT'S NAME: CLINT BRIGHT [facility] AGE: 60 Y [address] ROOM: [place] [address] LOCATION: GPCU ADMIT DATE: 11/19/2016 History & Physical DISCHARGE DATE: FAMILY PHYSICIAN: GARETH LOW MD ATTENDING PHYSICIAN: GARETH LOW DATE OF SERVICE: CHIEF COMPLAINT: Abdominal pain. HISTORY OF PRESENT ILLNESS: A 60-year-old gentleman with history of coronary artery disease, was admitted to primary care physician's office for abdominal pain which is located in the hypogastrium, sharp in character, 02/10, no radiation, no alleviating or aggravating factors. Had been present for months now, got worse yesterday, associated with decrease in appetite, not associated with any nausea, vomiting, fever, or chills. He endorses having regular bowel habits as well as regular urinary habits. No burning on urination noted. He does wear oxygen at nighttime but he does not complain that his shortness of breath his more than usual. He denied any chest pain, any palpitations, any cough, any cough or sputum production at this time. On further inquiry, he further denied having any headache, any dizziness, any trouble with the eyes, any trouble swallowing or any extremity swelling. No PND, orthopnea, or leg swelling noted. REVIEW OF SYSTEMS: All other systems reviewed and were negative except what is mentioned in the HPI. PAST MEDICAL HISTORY: 1. Hypertension. 2. Hyperlipidemia. 3. Obstructive sleep apnea, on 2 L of oxygen at home. 4. Restless legs syndrome. 5. Coronary artery disease, status post CABG as well as stents. 6. Diastolic heart failure with most recent ejection fraction of 55 to 60%. 7. Sick sinus syndrome, status post pacemaker. 8. Depression. 9. Peripheral neuropathy. MEDICATIONS: Being reconciled right now. ALLERGIES: NO KNOWN DRUG ALLERGIES. PATIENT'S NAME: CLINT BRIGHT [facility] AGE: 60 Y [address] ROOM: [place] [address] LOCATION: GPCU ADMIT DATE: 11/19/2016 History & Physical DISCHARGE DATE: FAMILY PHYSICIAN: GARETH LOW MD ATTENDING PHYSICIAN: GARETH LOW SOCIAL HISTORY: Quit smoking 11 years ago. Previously 60 pack year smoking history. No alcohol or drug abuse. FAMILY HISTORY: Significant for mom and dad having RI at the age of 60. PHYSICAL EXAMINATION: VITAL SIGNS: Blood pressure 187/70, pulse 64, afebrile, saturating 95% on room air. GENERAL: No acute distress. Alert and oriented x3. HEENT: Head: Atraumatic, normocephalic. Eyes: Nonicteric. No pallor. Oropharynx: Dry mucous membranes. CARDIOVASCULAR: S1, S2. No murmurs, gallops, or rubs. LUNGS: Clear to auscultation bilaterally. ABDOMEN: Soft, tender in the hypogastrium as well as in the epigastrium. Bowel sounds are present. EXTREMITIES: No clubbing, cyanosis, or edema. PSYCH: Normal affect, mood, and speech. NEUROLOGIC: Cranial nerves II through XII intact. No motor or sensory deficits. MUSCULOSKELETAL: No muscle tenderness or joint swelling noted. ENDOCRINE: No thyromegaly or sudhir features noted. LAB WORK: On lab work from primary care physician's office, noted to have lipase of above 900. ASSESSMENT: 1. Acute pancreatitis. 2. Coronary artery disease, status post CABG. 3. Heart failure with preserved ejection fraction, not in acute exacerbation. 4. Hypertension. 5. Hyperlipidemia. 6. Depression. 7. Sick sinus syndrome. PLAN: We are going to admit this patient. I will continue the IV resuscitation carefully given his heart failure. We are going to obtain hepatic panel to look for any obstructive pattern of liver enzymes. A CAT scan have been done, but report is not available yet. We will provide adequate pain control. EKG and troponin levels will be done. We will adequately try to control the blood PATIENT'S NAME: CLINT BRIGHT [facility] AGE: 60 Y [address] ROOM: [place] [address] [facility] ADMIT DATE: 11/19/2016 History & Physical DISCHARGE DATE: FAMILY PHYSICIAN: GARETH LOW MD ATTENDING PHYSICIAN: GARETH LOW. We are going to resume his home medications. He will be started on clears and diet will be advanced as tolerated. DVT prophylaxis will be provided with Lovenox. Activity as tolerated. His further course in the hospital will depend on his progress in the hospital. MD ARTURO MENDEZ/carol /[id number] D: [id number] T: [id number] HISTORY & PHYSICAL
--- NOTE | ~2016-11-19 | CON ---
PATIENT'S NAME: CLINT BRIGHT [facility] AGE: 60 Y [address] ROOM: [place] [address] LOCATION: GPCU ADMIT DATE: 11/19/2016 Consultation DISCHARGE DATE: FAMILY PHYSICIAN: GARETH LOW MD ATTENDING PHYSICIAN: GARETH LOW DATE OF CONSULTATION: 11/20/2016 HOSPITAL CONSULTATION REFERRING PROVIDER: Deandra Navas MD REASON FOR CONSULTATION: Abdominal pain. HISTORY OF PRESENT ILLNESS: This is a 60-year-old male, who was recently admitted to [facility] with acute abdominal pain and concerns for pancreatitis. On evaluation, his lipase was elevated at 930. He did undergo a CT scan that showed pancreas to be normal with no mass. There was no peripancreatic fluid collection or inflammatory changes. The pancreatic duct was not dilated. Gallbladder appeared normal. There was an incidental finding of small fat containing midline anterior abdominal wall hernia. We were asked to see in consultation for the patient's abdominal pain. The patient was seen and examined. He denies any history of pancreatitis. He does state that the pain came on suddenly, and he describes it as crampy in nature. He does state that it is a gripping pain that intermittently comes and goes and then will relieve. The patient denies any associated fever or chills with it. No change in his bowels. He does state that he is passing gas as well. He does state that the pain is aggravated with eating. Denies any associated nausea or vomiting. PAST MEDICAL HISTORY: 1. Restless legs syndrome. 2. Hypertension. 3. Hypothyroidism. 4. Chronic back pain. 5. Hypercholesterolemia. 6. Parkinson disease. 7. Sleep apnea, requiring oxygen at night. 8. Coronary artery disease with history of [place] and double bypass surgery in 1997. 9. Diastolic heart failure, with ejection fraction of 55% to 60%. PATIENT'S NAME: CLINT BRIGHT [facility] AGE: 60 Y [address] ROOM: [address] [address] LOCATION: GPCU ADMIT DATE: 11/19/2016 Consultation DISCHARGE DATE: FAMILY PHYSICIAN: GARETH LOW MD ATTENDING PHYSICIAN: GARETH LOW 10. Sick sinus syndrome, status post pacemaker placement. 11. Depression. 12. Peripheral neuropathy. PAST SURGICAL HISTORY: 1. Coronary artery bypass graft in 1997. 2. Pacemaker. 3. Aortogram with right lower extremity angiogram and angioplasty of the SFA for severe life-threatening claudications of the right lower extremity in December 2015. 4. Heart catheterization in September of 2016 and essentially normal. 5. He also had a heart catheterization in August 2013. 6. Back surgery. 7. Laparoscopic appendectomy. 8. Repair of the left 2nd digit. 9. Colonoscopy completed about 1 year ago. SOCIAL HISTORY: The patient is and lives in [place]. He quit smoking 11 years ago. He did have a 60 pack-year smoking history. Denies any alcohol use though does state greater than 5 plus years ago, there was a history of alcohol abuse. Denies any illicit drug use. FAMILY HISTORY: The patient's parents both had coronary artery disease with myocardial infarction. The patient denies any known gastrointestinal diseases or cancers. ALLERGIES: NO KNOWN MEDICATION ALLERGIES. CURRENT MEDICATIONS: Please refer to the medication administration record. REVIEW OF SYSTEMS: All point review of systems was completed. All were negative except for those identified in the history of present illness. PHYSICAL EXAMINATION: GENERAL: A pleasant 60-year-old gentleman who appears to be in no acute distress. VITAL SIGNS: Temperature 97.6, pulse is 62, respirations are 16, blood pressure 167/81, and oxygen saturations 97% on room air. SKIN: [place], warm, dry. No jaundice. HEENT: Head is normocephalic and atraumatic. Pupils are equal, round, and PATIENT'S NAME: CLINT BRIGHT [facility] AGE: 60 Y [address] ROOM: [id number] [place], [place] [address] [facility] ADMIT DATE: 11/19/2016 Consultation DISCHARGE DATE: FAMILY PHYSICIAN: GARETH LOW MD ATTENDING PHYSICIAN: GARETH LOW reactive to light. Sclerae are clear. Nonicteric. Oral mucosa is pink and moist. No thyromegaly. NECK: Soft and supple. CARDIOVASCULAR: Regular. Normal S1 and S2. RESPIRATORY: Respirations even and unlabored. LUNGS: Clear to auscultation. ABDOMEN: Soft, round. Noticeable small epigastric incisional hernia when patient was asked to stand, he points to his mid umbilical area where he states the most tenderness is. No specific masses are felt as well as no peritoneal signs. MUSCULOSKELETAL: No muscle weakness or atrophy. EXTREMITIES: No edema. NEUROLOGIC: Grossly nonfocal. LABORATORY DATA AND IMAGING STUDIES: Labs and Diagnostics: White blood cell count of 6.9, hemoglobin of 12.6, hematocrit of 37.3, and platelets of 222,000. Sodium 144, potassium of 4.0, chloride of 109, CO2 of 28, BUN of 14, creatinine of 1.1, glucose of 83, total bilirubin 0.5, alkaline phosphatase of 68, AST of 21, and ALT of 25. Lipase now has trended down to 60. A CT abdomen and pelvis was also completed on admission, 11/19/2016. This did show no pancreas abnormalities. No free air with no findings of bowel obstruction, vascular calcifications, and small midline anterior abdominal wall hernia into which abnormal fat extends. ASSESSMENT AND PLAN: Again this is a pleasant 60-year-old gentleman who was admitted with acute abdominal pain located in his mid umbilical area. We were asked to see in consultation. He was originally admitted for what was thought to be acute pancreatitis with the elevated lipase level, though CT confirmed there were no abnormalities within the pancreas. After examination, we do feel that the patient needs to be evaluated per Surgery for possible hernia. We will ask for them to see him in consultation and evaluation. Further recommendations per Surgery's recommendations. Thank you for this consult. JEREMY DAVIS APRN FOR MD CHARLIE UMANZOR/modl /[id number] d: 11/21/16 1525 t: 12/29/16 0821, CONSULTATION REPORT
--- NOTE | ~2016-11-19 | DS ---
PATIENT'S NAME: CLINT MAZARIEGOS [facility] AGE: 60 Y [address] ROOM: [id number] [place], [place] [address] LOCATION: GPCU ADMIT DATE: 11/19/2016 Discharge Summary DISCHARGE DATE: 11/23/2016 FAMILY PHYSICIAN: Alicja Ivory MD ATTENDING PHYSICIAN: Alicja Ivory PRINCIPLE DISCHARGE DIAGNOSIS: Abdominal pain. SECONDARY DIAGNOSES: 1. Possible gastritis secondary to aspirin and Plavix versus ischemic colitis. 2. Dyslipidemia with hypertriglyceridemia, coronary artery disease status post CABG and stenting with chronic diastolic heart failure which is currently well compensated, greater than 300. 3. Hypertension. 4. Obstructive sleep apnea, on nasal cannula O2 at home. 5. Restless legs syndrome. 6. Fatty liver by ultrasound on November 23, 2016. 7. Epigastric incisional hernia which is not incarcerated. CONSULTATIONS: 1. Dr. Horne of GI. 2. General Surgery, was seen by Dr. Janes Reyes on 11/20/2016. BRIEF SUMMARY: Mr. Mazariegos is a 60-year-old, gentleman with vascular disease. He was recently admitted with chest pain and had some tachycardia and has been on aspirin and Plavix. He was also diagnosed in the last admission with carotid bruit and his carotid ultrasound showed noncritical stenosis less than 39% bilaterally, but he did have plaque bilaterally. He has reported abdominal pain for the past 2 months which varies from day to day but is sometimes severe. At any rate, it has never gone away since it started. He had a mildly elevated lipase of 930 on 11/18 and on repeat was 60 on the , and now 169 which is well within the normal limit. His amylase is 37. He has had multiple imaging studies done here including CT of the abdomen and pelvis which showed no pancreatic mass or other abnormality. There was no gross pancreatic abnormality yesterday and ultrasound of the abdomen was done which showed no intra or extrahepatic ductal dilatation. No cholelithiasis. It was positive for fatty infiltration of the liver. The patient has been getting intermittent narcotics here. He has been a little bit inconsistent with the history. Yesterday, he told me it was not related to meals, so he could not find any precipitating factors. Today, he says it has got worse after breakfast, but at this point he says the pain is moderate and he is ready to go home. I have discussed this with Dr. Ivory who agrees that he will continue evaluation as an outpatient. Currently, he is not anemic. He has normal complete metabolic panel, and I PATIENT'S NAME: CLINT MAZARIEGOS [facility] AGE: 60 Y [address] ROOM: [place] [address] LOCATION: GPCU ADMIT DATE: 11/19/2016 Discharge Summary DISCHARGE DATE: 11/23/2016 FAMILY PHYSICIAN: Alicja Ivory MD ATTENDING PHYSICIAN: Alicja Ivory did order a PSA yesterday, that is a send out, it will not be back for a while. He had a urine culture which was negative except for contaminant. He has had some difficulty getting his stream started but no postvoid residual. On my exam, his tenderness is confined to the periumbilical area and infraumbilical area, although there is no palpable mass. There is no hepatosplenomegaly on exam. INSTRUCTIONS AT DISCHARGE: Diet: Low fat, low carb. Activity: As tolerated. Follow up: With Dr. Ivory in less than 1 week. MEDICATIONS AT DISCHARGE: 1. Tylenol p.r.n. 2. Aspirin 325 mg daily. 3. Atorvastatin 80 mg at bedtime. 4. Plavix 75 mg daily. 5. Neurontin 800 mg t.i.d. 6. Levothyroxine 200 mcg daily. 7. Lisinopril 20 daily. 8. Cetirizine 10 p.o. daily. 9. Metoprolol 100 mg p.o. b.i.d. 10. Multivitamin p.o. daily. He will be instructed to consistently take PPI. He is given a new script for Protonix 40 mg p.o. daily, Mirapex 0.125 mg p.o. at bedtime, spironolactone 25 mg daily, tramadol 100 mg t.i.d., Flonase as needed. CONDITION AT DISCHARGE: Good. Greater than 30 minutes was spent in the discharge process. MELANIE WILSON MD LM/carol /[id number] d: 11/23/16 2352 t: 11/24/16 1246, DISCHARGE SUMMARY
--- NOTE | ~2016-11-19 | CON ---
PATIENT'S NAME: ANT MAZARIEGOS [facility] AGE: 60 Y [address] ROOM: [address] [place], [place] [address] LOCATION: GPCU ADMIT DATE: 11/19/2016 Consultation DISCHARGE DATE: FAMILY PHYSICIAN: GARETH LOW MD ATTENDING PHYSICIAN: GARETH LOW DATE OF CONSULTATION: 11/20/2016 REFERRING PHYSICIAN: Deandra Navas MD CHIEF COMPLAINT: Possible incarcerated incisional hernia. HISTORY OF PRESENT ILLNESS: Ant Mazariegos is a 60-year-old male, who was admitted to [facility] yesterday with abdominal pain and concerns for pancreatitis. The patient states that he has been having stomach problems for the past 2 months and this has gotten worse. He saw Dr. Low 2 days ago and his lipase was noted to be elevated at 930. The patient had already headed home prior to the return of lab work. The patient was contacted and CT scan was recommended. The patient returned on November 19, 2016, for the CT scan and subsequently was admitted to [facility]. CT scan showed the pancreas to be normal with no mass. There was no peripancreatic fluid collection. No inflammatory changes. The pancreatic duct was not dilated. The gallbladder also appeared normal. There was an incidental finding of a small fat containing midline anterior abdominal wall hernia. Dr. Navas has requested surgical evaluation for the hernia. The patient states that the pain seems to be worse after eating. He states that any food or liquid will make the pain worse. He grabs himself around the periumbilical region indicating that, that is the area of the pain. He describes the pain as stabbing. He states that if he eats breakfast in the morning, he will have pain all day long. Nothing will make it better except for the pain medications that he has received here at the hospital. The patient is fairly active, mowing lawns, and painting. At first, he states that activity does not make the pain any worse, but then states that, that may be it does make it worse. He denies any nausea or vomiting. No constipation or diarrhea. Gastroenterology was consulted due to the elevated lipase. They recommended a surgical consultation for the hernia. PAST MEDICAL HISTORY: Allergies: None. MEDICATIONS: PATIENT'S NAME: ANT MAZARIEOGS [facility] AGE: 60 Y [address] ROOM: [id number] [place], [place] [address] LOCATION: GPCU ADMIT DATE: 11/19/2016 Consultation DISCHARGE DATE: FAMILY PHYSICIAN: GARETH LOW MD ATTENDING PHYSICIAN: GARETH LOW 1. Zyrtec 10 mg p.o. daily. 2. Neurontin 800 mg p.o. t.i.d. 3. Lopressor 100 mg p.o. b.i.d. 4. Aspirin 325 mg p.o. daily. 5. Prinivil 20 mg p.o. b.i.d. 6. Levothroid 200 mcg p.o. daily. 7. Ultram 100 mg p.o. t.i.d. 8. Lipitor 80 mg p.o. q.h.s. 9. Mirapex 0.125 mg p.o. q.h.s. 10. Multivitamin 1 tablet p.o. daily. 11. Aldactone 25 mg p.o. daily. 12. Oxygen 2 L at night for sleep apnea. 13. Plavix 75 mg p.o. daily. 14. Fluticasone 1 spray in the nose daily. 15. Tylenol extra-strength 1000 mg p.o. t.i.d. 16. Protonix 40 mg p.o. daily. ILLNESSES: Restless legs syndrome, hypertension, hypothyroid, chronic back pain, hypercholesterolemia, Parkinson disease, sleep apnea requiring oxygen at night, coronary artery disease with history of GA and double bypass surgery in 1997, diastolic heart failure with ejection fraction of 55% to 60%, sick sinus syndrome status post pacemaker, depression, and peripheral neuropathy. OPERATIONS: Coronary artery bypass graft in 1997, pacemaker, aortogram with right lower extremity angiogram and angioplasty of the SFA for severe life-threatening claudications of right lower extremity in December [address] Zhao. The patient had a heart catheterization with Dr. Peterson, September 2016 that showed no major stenosis, patent proximal LAD, and MORRIS. He also had heart catheterization in August 2013. Back surgery, laparoscopic appendectomy, repair of the left second digit, colonoscopy about 1 year ago. The patient denies any prior history of hernia repairs. SOCIAL HISTORY: The patient is and lives in [place]. He quit smoking 11 years ago. He had a [id number] smoking history. He currently does not use any alcohol, but states that he does have a history of alcohol abuse. FAMILY HISTORY: Mother and father both had coronary artery disease with myocardial infarction at the age of 60. The patient denies any family history of cancer. REVIEW OF SYSTEMS: See HPI. Denies any urinary symptoms. No shortness of breath or chest pain. PATIENT'S NAME: ANT MAZARIEGOS [facility] AGE: 60 Y [address] ROOM: [id number] [place], [place] [address] LOCATION: [facility] ADMIT DATE: 11/19/2016 Consultation DISCHARGE DATE: FAMILY PHYSICIAN: GARETH LOW MD ATTENDING PHYSICIAN: GARETH LOW PHYSICAL EXAMINATION: VITAL SIGNS: Temperature is 97.6, blood pressure 172/79, pulse 69, respirations 16. GENERAL: A 60-year-old male, who is alert, pleasant, in no acute distress. Eyes, ears, nose, and throat are grossly normal. LUNGS: Clear. HEART: Regular. ABDOMEN: Bowel sounds are present. Abdomen is soft with no masses palpated. He has a scar from the chest extending into the epigastric region from his CABG. There is a small epigastric incisional hernia associated with the scar with a fascial defect of approximately 3-4 cm. This is easily reducible and does not appear to be tender for the patient with palpation. Just inferior to this, he has a laparoscopic incision site, which I do not appreciate a hernia with. He has another small incision at the umbilicus. No umbilical hernia is appreciated. The patient's tenderness tends to be in the periumbilical region, but again his abdomen is soft. It appears to be mild tenderness. No masses are felt. No peritoneal signs. EXTREMITIES: Upper extremities, he has an IV in his right upper arm. Left arm has a decent-sized area of ecchymoses after his IV infiltrated in the CT scan. The patient appears to move his lower extremities well and actually stood up for me for exam without difficulty. LABORATORY DATA: Lab work today shows white blood cell count 6.9, hemoglobin 12.6, hematocrit 37.3, platelets 222. Sodium 144, potassium 4.0, chloride 109, CO2 28, BUN 14, creatinine 1.1, glucose 83, total bilirubin 0.5, alkaline phosphatase 68, AST 21, ALT 25, lipase 60. ASSESSMENT: 1. A 60-year-old male with 2-month history of periumbilical pain, made worse with eating with CT scan showing gallbladder and pancreas to be normal. 2. Epigastric incisional hernia, which is reducible and essentially nontender on exam. 3. Elevated lipase, which has improved. PLAN: I discussed with the patient that I do not believe that the hernia is the cause of his pain. I am able to reduce the hernia without difficulty and again does not seem tender over this area. He complains of pain in the periumbilical region, which I do not see any abnormalities of. I did discuss with him that the epigastric hernias are sometimes difficult to repair due to lack of good tissue to sew mesh to, which would cause increased risk for recurrence. The patient does have a fair amount of health problems and if this hernia does not seem to bother him, probably best to just observe it. If PATIENT'S NAME: ANT MAZARIEGOS [place] [facility] AGE: 60 Y [address] ROOM: [place] [id number] [facility] ADMIT DATE: 11/19/2016 Consultation DISCHARGE DATE: FAMILY PHYSICIAN: GARETH LOW MD ATTENDING PHYSICIAN: GARETH LOW the hernia becomes more symptomatic for him, then we would certainly be happy to see him again at [facility] and re-evaluate in regard to surgical treatment options. I will have Dr. Reyes review over the CT scan to make sure that there is no other abnormalities that he can see in the area of the periumbilical region, which is where the patient is having his pain. Dr. Reyse will be evaluating the patient momentarily and will make recommendations accordingly. Again, no surgical treatment is recommended at this time and we will defer back to the hospitalist and Gastroenterology. Dr. Reyes is available for supervision. CANDELARIA POOLE PA-C FOR MD JANES MURO/modl /[id number] d: 11/21/16 0147 t: 11/27/16 1944, CONSULTATION REPORT
[~2016-11-19 10:15] MED LIST changes: -PROTONIX40 MG PO
[2016-11-19] MEDS ORDERED: PROTONIX40 MG PO (12:11)
[2016-11-19 13:27] LABS: BASOPHIL # 0.1 K/uL (0.0-0.2); BASOPHIL % 0.7 %; EOSINOPHIL # 0.3 K/uL (0.0-0.5); EOSINOPHIL % 3.6 %; HEMATOCRIT 36.7 % (37.0-53.0); HEMOGLOBIN 12.2 g/dL (11.0-16.0); IMMATURE GRANULOCYTE % 0.5 %; LYMPHOCYTE # 2.8 K/uL (0.8-4.0); LYMPHOCYTE % 33.9 %; MCHC 33.2 gm/dL (32.0-36.5); MCV 96.3 fl (83.0-98.0); MONOCYTE # 0.8 K/uL (0.0-1.0); MONOCYTE % 10.3 %; MPV 9.7 fl (9.4-12.4); NEUTROPHIL # (ANC) 4.2 K/uL (1.4-9.0); NRBC % 0 /100WBC (0-0.00); PLATELET COUNT 227 K/uL (150-450); RBC 3.81 M/uL (3.50-5.50); RDW-CV 13.4 % (11.9-14.6); WBC 8.2 K/uL (4.0-11.0)
[2016-11-19 13:46] LABS: ALBUMIN 3.5 gm/dL (3.5-5.0); ANION GAP 10.3 (10.0-19.0); CALCIUM 8.7 mg/dL (8.5-10.5); CREATININE 1.1 mg/dL (0.6-1.3); POTASSIUM 4.3 mMol/L (3.7-5.1); TOTAL PROTEIN 6.6 g/dL (6.0-8.4)
[2016-11-19 13:50] LABS: TOTAL BILIRUBIN 0.4 mg/dL (0.0-1.5)
--- NOTE | 2016-11-19 13:55 | NUR ---
Pt is 60 y/o male admit for pancreatitis for hospitalist. Pt alert and oriented x3. No allergies. Has had abd pain rama after eating anything, for awhile. Pt came to see today who ordered a CT scan and sent him here to be admitted. Pt's enzymes also elevated. Hx Pacemaker,CABG,stents, edema-legs,chronic back pain,CAD,htn,hypercholest,slightly SOB,pneumonia, sleep apnea-O2 at [facility],renal calculi,diff w stream,diverticulitis,N/V, heartburn. Resides at home with .
--- NOTE | 2016-11-19 17:48 | NUR ---
Significant Event: A/Ox3. [id number]. P- 60s. Afebrile. Room air. Lungs clear. R) UA Midline running LR at 75ml/hr x 1Liter. Ok to draw blood in midline per MD. Morphine given x2 last at 1630 for sharp abominal pain. Patient is up SBA. Diet is Clear liquid and advance as tolerated. Patient denies nausea. Active bowel sounds. Pleasant and cooperative with cares.
--- NOTE | 2016-11-20 04:26 | NUR ---
Significant Event: A/0 X 3, SBP'S 150'S TO 170'S, DID NOT NEED ANY PRN LABETOLOL FOR >190 BUT DO HAVE IF NEEDED. HR 60'S. 1 BAG LR INFUSED AND D/C'D. ABDOMINAL PAIN HAS BEEN BIGGEST ISSUE, SCHEDULED TYLENOL AND ULTRAM GIVEN WITH HS MEDS, ALSO GAVE PRN 1 MG MORPHINE X 2, LAST AT 0215. DR. BRIZUELA CALLED DR. DURANT FOR POSSIBLE CONSULT (NO ORDERS FOR CONSULT YET) TO LOOK INTO POSSIBLE HERNIA VS. PANCREATIC ISSUE. PATIENT HAS RIGHT UPPER MIDLINE, DO HAVE MD ORDERS TO DRAW LABS FORM THE LINE. Follow up:
[2016-11-20 04:40] LABS: ALBUMIN 3.3 gm/dL (3.5-5.0); CALCIUM 8.5 mg/dL (8.5-10.5); CREATININE 1.1 mg/dL (0.6-1.3); TOTAL PROTEIN 6.4 g/dL (6.0-8.4)
[2016-11-20 04:44] LABS: TOTAL BILIRUBIN 0.5 mg/dL (0.0-1.5)
[2016-11-20 04:46] LABS: BASOPHIL # 0.1 K/uL (0.0-0.2); BASOPHIL % 0.9 %; EOSINOPHIL # 0.3 K/uL (0.0-0.5); EOSINOPHIL % 3.9 %; HEMATOCRIT 37.3 % (37.0-53.0); HEMOGLOBIN 12.6 g/dL (11.0-16.0); IMMATURE GRANULOCYTE % 0.4 %; LYMPHOCYTE # 2.7 K/uL (0.8-4.0); LYMPHOCYTE % 38.8 %; MCH 32.6 pg (27.0-34.0); MCHC 33.8 gm/dL (32.0-36.5); MCV 96.6 fl (83.0-98.0); MONOCYTE # 0.7 K/uL (0.0-1.0); MONOCYTE % 9.4 %; NEUTROPHIL # (ANC) 3.2 K/uL (1.4-9.0); NEUTROPHIL % 46.6 %; NRBC % 0 /100WBC (0-0.00); PLATELET COUNT 222 K/uL (150-450); RBC 3.86 M/uL (3.50-5.50); RDW-CV 13.3 % (11.9-14.6); WBC 6.9 K/uL (4.0-11.0)
--- NOTE | 2016-11-20 16:51 | NUR ---
Significant Event: PT IS AOX3. SBP HAS BEEN 120-180s. HR IN THE 60S, ATRIAL PACED. ON RA. LUNGS CLEAR AND DIM. PT HAS HAD POOR PAIN CONTROL. GAVE MORPHINE X3, LAST GIVEN AT 1548. SCHEDULED ULTRAM X2, LAST GIVEN AT 1548. SCHEDULED TYLENOL X2, LAST GIVEN AT 1549. HYDRALAZINE GIVEN X1. GIVE FOR SBP>165. GI AND SURGERY CONSULTED FOR ABD PAIN. Follow up: CONTINUE WITH PLAN OF CARE
--- NOTE | 2016-11-21 04:31 | NUR ---
Significant Event: Patient A/Ox3. VSS on RA. Patient is up ad bairon during the day and standby assist at night. Patient rates his pain in his abdomen at a constant 8-10. Does not seem to be relieved by medication. Midline to R) upper arm. L) arm is red/tender/edematous from IV that was infiltrated with contrast. Follow up: Continue plan of care
--- NOTE | 2016-11-21 11:45 | NUR ---
Introduced self and role of care management to patient. He lives in [place] with his . He plans home when ready for discharge. He says he isn't going home until they figure out why he is having abd. pain. Denies discharge needs at this time. Will follow.
--- NOTE | 2016-11-21 18:40 | NUR ---
Significant Event:Patient has continued to have abdominal pain, that he reports that is worse after he eats. Appetite is fair. Has had MS x2 along with scheduled Ultram and Tylenol. Reports that 8 /10 is as good as it gets most of the time. Follow up:pain control
[2016-11-21 20:37] LABS: BILIRUBIN URINE NEGATIVE (NEGATIVE); BLOOD URINE NEGATIVE /UL (NEGATIVE); COLOR URINE YELLOW (YELLOW); GLUCOSE URINE NEGATIVE (NEGATIVE); KETONE URINE NEGATIVE (NEGATIVE); LEUKOCYTES URINE NEGATIVE /UL (NEGATIVE); NITRITE URINE NEGATIVE (NEGATIVE); PROTEIN URINE 30 mg/dL (NEGATIVE); TURBIDITY URINE CLEAR (CLEAR); UROBILINOGEN URINE 1 mg/dL (NORMAL)
[2016-11-21 20:48] LABS: BACTERIA URINE NEGATIVE (NEGATIVE); RBC URINE 0-2 #/HPF (NEGATIVE); WBC URINE 0-2 #/HPF (NEGATIVE)
--- NOTE | 2016-11-22 04:46 | NUR ---
Significant Event: PT A&Ox3. Lung sounds clear on RA. VSS. PT is up three times during the night to the bathroom. C/O severe pain in the abdomen, requests morphine with relief. K-pad is also being used with additional relief. BMs have been moderate liquid following Mg-citrate given at the beginning of the shift. Midline to R) UA. Follow up: Continue plan of care. Monitor VS and pain.
--- NOTE | 2016-11-22 19:04 | NUR ---
Significant Event:Patient had abd US done today. Continues to have abd dominal pain. he rates it 8-9/10 most of the time, continues to be worse after eating. Tried Lodge this morning, and thought it kind of helped. This afternoon held his second dose Tyl ES and took Lodge Two tabs. Thought that it helped. Rarely rates pain less that 7, doesn't think any of the medication helps alot. Follow up:Hematest stools
--- NOTE | 2016-11-23 05:01 | NUR ---
Significant Event: PT CONTINUES TO COMPLAIN OF 7-10/10 PAIN. STATES NORCO IS INEFFECTIVE, REQUESTING MORPHINE Q3H UNLESS ASLEEP. STATES THAT MORPHINE BRINGS PAIN DOWN TO 7/10, BUT QUICKLY CLIMBS BACK UP TO A 10/10. ATE 100% SUPPER. NO BM THIS SHIFT. Follow up: CONTINUE MARY NAM RN
--- NOTE | 2016-11-23 11:31 | NUR ---
A - PT SCREENED D/T LOS. PANCREATITIS. ABD PAIN - WORSE AFTER MEALS. HT: 71" WT: 222# BMI: 31.0. LABS: ALB 3.3. MEDS: NOTED. DIET: REG. INTAKE: 50-100% NEEDS: 6303-1587 KCAL (15-20 KCAL/KG), 81-101 G PRO (0.8-1 G/KG), 2020 ML FLUID (1 ML/KG). D - ALTERED GI FUNCTION R/T PANCREATITIS AEB ABD PAIN. I - GOAL FOR INTAKE TO REMAIN 50-100% FOR DURATION OF STAY. WILL HOLD OFF ON SUPPLEMENTS AT THIS TIME. M/E - WILL MONITOR INTAKE, GI FUNCTION AND F/U IN 3-5 DAYS.
--- NOTE | 2016-11-23 13:17 | NUR ---
D:Patient being discharged home, will follow up with primary doctor in 1 week. Pt verbelizes understanding about that. Does verbelize frustration that he continues to have pain, but we have been unable to find anything causing the pain. He doesn't think that the pain meds help very much. Patient being discharged home, talked about how important taking Protonix was and following up with PRP is. Patient has personal belongings, will be driving himself home. Dr. Song aware. Patient released at 1245 per wheelchair, per front hospital entrance, released to car to return home.
== END 2016-11-23 12:45 | disposition disaster alternative care site (69) | DRG 392 ==
LOC: GRAD 10:15 → GPCU 11:20
PROVIDERS: Internal Medicine; Internal Medicine Cardiovascular Disease; Physician Assistant; ADMIT Student in an Organized Health Care Education/Training Program
DX: K52.9 Noninfective gastroenteritis and colitis, unspecified (principal); I50.32 Chronic diastolic (congestive) heart failure; I11.0 Hypertensive heart disease with heart failure; I49.5 Sick sinus syndrome; K29.00 Acute gastritis without bleeding; E78.5 Hyperlipidemia, unspecified; F32.9 Major depressive disorder, single episode, unspecified; I25.10 Atherosclerotic heart disease of native coronary artery without angina pectoris; G47.33 Obstructive sleep apnea (adult) (pediatric); G25.81 Restless legs syndrome; K76.0 Fatty (change of) liver, not elsewhere classified
CPT/HCPCS: C1751; C9113; J0360; J1650; J2001; J2270; J7120; Q0162; Q9967

== ENCOUNTER → 2016-12-30 | Outpatient (CLI) | payer MEDICARE ==
[~2016-12-30] MED LIST changes: +PROTONIX40 MG PO
--- NOTE | ~2016-12-30 | PUL ---
PATIENT'S NAME: CLINT BRIGHT [facility] AGE: 61 Y [address] ROOM: [place] [address] LOCATION: [facility] ADMIT DATE: 12/30/2016 Pulmonary DISCHARGE DATE: FAMILY PHYSICIAN: GARETH LOW MD ATTENDING PHYSICIAN: GARETH LOW NAME OF PROCEDURE: Sleep Study PROCEDURE DATE: 12/30/16 TECH: ROSIE Landaverde TEST #: [facility] [place] [id number] TECHNICAL PARAMETERS: The patient was studied using International 10/20 measuring system. While the patient was studied, there was continuous monitoring of EEG (8 leads), EOG (2 leads), EKG (3 leads), submental EMG (3 leads), tibial (4 leads), respiratory inductive plethysmography (RIP) for thoracic and abdominal effort, oral and nasal airflow with a thermocouple and pressure transducer, and oximetry. The hemodialysis technician also performed visual and auditory observations noting things like body position, patient's status, breath sounds, artifact, snoring level and patient comments. Continuous sound was monitored using a 2-way speaker system and video monitoring was performed using an infrared camera. Review of the entire study was performed epoch by epoch utilizing a single epoch and multiple epoch capability sleep system. MEDICAL HISTORY: Patient is a 61-year-old overweight man with daytime sleepiness and snoring. SLEEP STAGE SUMMARY: The patient was studied for 552 minutes of which he slept 515 minutes. He fell asleep in 1 minute and slept for 93% of the night. Sleep architecture revealed a decline in slow wave and REM sleep. RESPIRATORY SUMMARY: Prior to initiating CPAP there were 17 apneas and 32 hypopneas for an apnea/hypopnea index moderately elevated at 14.8 events per hour. CPAP was initiated. There was inadequate time for complete PAP titration. EKG SUMMARY: Average heart rate during sleep 53 beats per minute. LIMB MOVEMENT SUMMARY: Frequent periodic limb movements were noted at times during the study. These may be clinically relevant. IMPRESSION: 1. Obstructive sleep apnea with treatment emergent central apneas. PATIENT'S NAME: CLINT BRIGHT [facility] AGE: 61 Y [address] ROOM: [place] [address] LOCATION: [facility] ADMIT DATE: 12/30/2016 Pulmonary DISCHARGE DATE: FAMILY PHYSICIAN: GARETH LOW MD ATTENDING PHYSICIAN: GARETH LOW 2. Probable periodic limb movement disorder. PLAN: Would consider a repeat study for full PAP titration. Would also reassess limb movements once the sleep apnea is controlled. Patient will receive results from the ordering provider. TRACY SCHROEDER MD [facility]/ /[id number] dtt: 01/13/17 0806 , Tracy Schroeder. dtd: 01/01/17 1315
== END | disposition disaster alternative care site (69) ==
LOC: GSLP 20:03
DX: G47.33 Obstructive sleep apnea (adult) (pediatric) (principal); R06.83 Snoring